=== PATIENT | male | born 1995 | race American Indian/Alaskan Native ===

== ENCOUNTER 2016-03-17 05:33 | Emergency (ER) | payer OTHER ==
[2016-03-17 06:25] LABS: Basophils % (Auto) 0.7 % (0.0-1.8); Eosinophils % (Auto) 2.2 % (0.0-4.3); Hematocrit 39.7 % (35.5-45.6); Hemoglobin 12.9 gm/dl (11.8-15.2); Mean Corpuscular HGB Conc 33 % (32-34); Mean Corpuscular Hemoglobin 27 pg (28-32); Mean Corpuscular Volume 84 fl (84-94); Platelet Count 189 K/mm3 (140-440); Red Blood Count 4.71 M/mm3 (3.65-5.03); Red Cell Distribution Width 13.9 % (13.2-15.2); White Blood Count 8.9 K/mm3 (4.5-11.0)
[2016-03-17 06:29] LABS: Blood Urea Nitrogen 18 mg/dL (9-20); Calcium 9.2 mg/dL (8.4-10.2); Carbon Dioxide 29 mmol/L (22-30); Chloride 100.8 mmol/L (98-107); Glucose 98 mg/dL (75-100); Potassium 3.7 mmol/L (3.6-5.0); Sodium 141 mmol/L (137-145)
[2016-03-17 06:30] LABS: INR 0.96 (0.87-1.13)
[2016-03-17 06:31] LABS: Anion Gap 15 mmol/L; Partial Thromboplastin Time 32.4 Sec. (24.2-36.6)
--- NOTE | 2016-03-17 09:55 | Emergency Department Report ---
Chief Complaint: Syncope Stated Complaint: SYNCOPE Time Seen by Provider: 03/17/16 09:54 - HPI History of Present Illness: Patient here reports that he is having blackouts. He said the first episode was 2 months ago and he had a second one earlier today. Denies any nausea vomiting or diarrhea. Denies Dizziness or headache. Denies Any fever or chills. Denies any blurred vision. Denies any drug use. No chest pain or shortness of breath. He reports that he is having no pain. - ROS Review of Systems: all Systems are negative unless stated in HPI above. - Exam Vital Signs: Vital Signs 03/17/16 05:45 Temperature 98.1 F Pulse Rate 60 Respiratory 20 Rate Blood Pressure 135/82 O2 Sat by Pulse 97 Oximetry Physical Exam: General: This is a 20-year-old male well-nourished well-developed in no acute distress. Neurological: GCS at 15, alert and oriented 3, speech is normal and fluid. Negative pronator drift. Normal reflexes. no Facial drooping. Gait is normal and bilateral hand [employer] strong and equal. No motor or sensory deficit. CV: S1, S2. Regular rate and rhythm. MSE screening note: Focused history and physical exam performed. Due to findings the following was ordered:see [facility] ED Medical Decision Making - Lab Data Result diagrams: 03/17/16 06:05 03/17/16 06:05 - Medical Decision Making Medical decision making: Patient seen by provider in triage area. Appropriate protocol activated and patient to main ED to be seen by physician. ED Disposition for MSE Condition: Stable
--- NOTE | 2016-03-17 11:30 | Cat Scan Report ---
CRANIAL CT SCAN: Serial contiguous axial images were obtained through the cranium. Intravenous contrast material was not administered. The ventricles are normal in size and appearance. There is no mass effect or midline shift. No areas of abnormally increased or decreased attenuation are seen. No mass lesion is seen. The mastoid air cells and visualized portions of the sinuses are normal. IMPRESSION: Cranial CT scan within normal limits.
[2016-03-17] MEDS ORDERED: NACL 0.9% 1000 ML 500 ML IV ONE (14:17)
[2016-03-17] MEDS ORDERED: NACL 0.9% 500 ML 500 ML ONE (14:21)
[2016-03-17] MEDS ORDERED: NACL 0.9% 500 ML 500 ML IV ONE (14:22)
--- NOTE | 2016-03-17 14:27 | Emergency Department Report ---
HPI - General Chief Complaint: Syncope Time Seen by Provider: 03/17/16 09:54 - HPI HPI: The patient is a 20-year-old male who presents for evaluation of lightheadedness. The patient states that at 5 AM this morning, greater than 6 hours prior to my evaluation, he experienced sudden onset of severe lightheadedness after standing up to change his toddler's diaper. He states that he subsequently passed out and was dazed for a few seconds. He denies trauma or injury to the head, headache, neck pain, chest pain, back pain, abdominal pain, pain to the extremities, paresthesias, motor deficit, urine or bowel incontinence or retention, seizure-like activity, or other focal neurological deficit. ED Past Medical Hx - Past Medical History Previous Medical History?: No - Surgical History Past Surgical History?: No - Social History Smoking Status: Never Smoker Substance Use Type: None - Medications Home Medications: Home Medications Medication Instructions Recorded Confirmed Last Taken Type No Known Home Medications [No 03/17/16 03/17/16 Unknown History Reported Home Medications] ED Review of Systems ROS: Stated complaint: SYNCOPE Other details as noted in HPI Constitutional: denies: fever; reports syncope ENT: denies: throat or neck pain Respiratory: denies: cough, shortness of breath Cardiovascular: denies: chest pain Endocrine: denies unexplained weight loss or gain Gastrointestinal: denies: abdominal pain, nausea Genitourinary: denies: dysuria Musculoskeletal: denies: leg swelling Skin: denies: rash Neurological: denies: headache Hematological/Lymphatic: denies: easy bleeding or easy bruising Psych: denies sadness or hopelessness Physical Exam - Physical Exam Vital Signs: Vital Signs 03/17/16 03/17/16 05:45 12:46 Temperature 98.1 F 98 F Pulse Rate 60 51 L Respiratory 20 18 Rate Blood Pressure 135/82 Blood Pressure 136/62 [Left] O2 Sat by Pulse 97 99 Oximetry Physical Exam: General: well-nourished, well-developed, no acute distress Head: Normocephalic, atraumatic Eyes: normal sclera ENT: Mucous membranes are pale and dry Neck: No neck stiffness, no cervical adenopathy Respiratory: Breath sounds equal bilaterally, no wheezing, rales, or rhonchi Cardio: S1 and S2 present, no murmurs, rubs, gallops, capillary refill is delayed Abdomen: Normoactive bowel sounds, soft abdomen, no rigidity, no guarding or rebound tenderness Musc: No pitting edema Skin: No rash Neuro: Alert oriented 3, no facial drooping, normal speech, no sensation or motor deficit in the extremities, reflexes 2+ symmetric on DTR testing, no obvious gross neuro deficits Psych: Normal affect ED Course Vital Signs 03/17/16 03/17/16 05:45 12:46 Temperature 98.1 F 98 F Pulse Rate 60 51 L Respiratory 20 18 Rate Blood Pressure 135/82 Blood Pressure 136/62 [Left] O2 Sat by Pulse 97 99 Oximetry ED Medical Decision Making - Lab Data Result diagrams: 03/17/16 06:05 03/17/16 06:05 - Medical Decision Making The patient was seen and examined by myself. The patient is placed on a cardiac care nurse and continuous pulse ox. On initial evaluation, the patient was found to be in no distress. Evaluation orders were placed. The patient is given 500cc normal saline fluid bolus for treatment of dehydration. Lab results were grossly unremarkable including 3 sets of negative troponin. EKG is unremarkable. CAT scan of the head is negative for acute intracranial disease process. The patient was reevaluated and reported that their symptoms were markedly improved. The patient is stable for discharge with outpatient follow- up. The patient is given follow-up and return instructions. The patient expressed understanding and agreed with the plan. The patient is discharged in stable condition. Critical care attestation.: If time is entered above; I have spent that time in minutes in the direct care of this critically ill patient, excluding procedure time. ED Disposition Clinical Impression: Dehydration, Orthostatic syncope Disposition: DISCHARGED TO HOME OR SELFCARE Is pt being admited?: No Does the pt Need Aspirin: No Condition: Stable Instructions: Syncope (ED), Dehydration (ED) Referrals: PRIMARY CARE, [Primary Care Provider] - 3-5 Days Forms: Work/School Release Form(ED), Accompanied Note Time of Disposition: 14:23
[2016-03-17 14:53] VITALS: BP 131/76
== END 2016-03-17 14:55 | disposition home or self-care (01) ==
LOC: ED 05:33
DX: E86.0 Dehydration (principal); R55 Syncope and collapse
CPT/HCPCS: 36415; 70450; 80048; 84484; 85025; 85610; 85730; 93005; 93010; 99285; J7040